=== PATIENT | female | born 1960 | race Caucasian/White ===

== ENCOUNTER 2025-07-07 12:48 | Outpatient (CLI) | payer MEDICARE | END 2025-07-07 12:49 | disposition home or self-care (01) | LOC: BURRAD 12:48 | PROVIDERS: ATTEND Student in an Organized Health Care Education/Training Program | DX: S99.921A Unspecified injury of right foot, initial encounter (principal); S92.421A Displaced fracture of distal phalanx of right great toe, initial encounter for closed fracture ==